=== PATIENT | female | born 1960 | race Caucasian/White ===

== ENCOUNTER 2022-04-10 04:35 | Inpatient (IN) ==
[2022-04-10] MEDS ORDERED: Amiodarone 360 MG IVPREMIX 360 MG/200 ML BAG IV ONE ×2 (05:35→08:31)
[2022-04-10 05:38] LABS: ABS Eosinophils 0.1 10^3/ul (0-0.6); ABS Lymphocytes 1.9 10^3/ul (1.0-4.8); ABS Monocytes 0.7 10^3/ul (0-0.8); ABS Neutrophils 6.5 10^3/ul (1.5-7.7); Eosinophil % 1.4 %; Hematocrit 43 % (35-47); Hemoglobin 14.1 g/dL (12.0-16.0); Lymphocyte % 20.9 %; Mean Corpuscular HGB Conc 33 g/dL (31-36); Mean Corpuscular Hemoglobin 28 pg (27-31); Mean Corpuscular Volume 85 fL (80-97); Mean Platelet Volume 8.6 fL (7.4-10.4); Platelet Count 326 10^3/uL (150-450); Red Blood Count 5.09 10^6 /uL (3.70-4.87); Red Cell Distribution Width 17 % (10-15); White Blood Count 9.3 10^3/uL (3.5-10.8)
[2022-04-10 05:49] LABS: Activated Partial Thrombo Time 35.2 seconds (26.0-38.0); INR 1.18 (0.89-1.11)
[2022-04-10 06:01] LABS: High Sens Troponin Baseline 1415 pg/mL (<15)
[2022-04-10] MEDS ORDERED: Albuterol HFA INHALER 8 gm MDI INH PRN (06:37)
[2022-04-10 07:06] LABS: High Sensitivity Troponin 1 Hr 1456 pg/mL (<15)
[2022-04-10 07:55] LABS: Albumin 4.2 g/dL (3.2-5.2); Albumin/Globulin Ratio 1.5 (1-3); C Reactive Protein 11.06 mg/L (<8.01); Calcium 9.5 mg/dL (8.6-10.3); Globulin 2.8 g/dL (2-4); Magnesium 1.9 mg/dL (1.9-2.7); Potassium 3.8 mmol/L (3.5-5.0); eGFR CKD-EPI 73.3 (>60)
[2022-04-10] MEDS ORDERED: .Amiodarone 24HR ONLY IV Protocol Order Note IV ONE (08:24)
[2022-04-10] MEDS ORDERED: Sulfur Hexaflouride MICROSPHR 25 MG VIAL ONE (08:38)
[2022-04-10 09:20] LABS: Sodium 126 mmol/L (135-145)
[2022-04-10 09:21] LABS: Albumin 5.1 g/dL (3.2-5.2); Albumin/Globulin Ratio 1.5 (1-3); Alkaline Phosphatase 44 U/L (35-149); Blood Urea Nitrogen 13 mg/dL (6-24); C Reactive Protein 10.03 mg/L (<8.01); CO2 Carbon Dioxide 29 mmol/L (22-32); Calcium 8.8 mg/dL (8.6-10.3); Chloride 97 mmol/L (101-111); Globulin 3.3 g/dL (2-4); Glucose 103 mg/dL (70-100); Total Protein 8.4 g/dL (6.4-8.9); eGFR CKD-EPI 62.2 (>60)
[2022-04-10] MEDS ORDERED: Lorazepam PYXIS KEY PRN (09:49)
[2022-04-10] MEDS ORDERED: LORazepam 2 mg VIAL 1 ml IV PUSH ONE (09:49)
[2022-04-10] MEDS ORDERED: Lorazepam PYXIS KEY ONE (09:55)
[2022-04-10] MEDS ORDERED: LORazepam 2 mg VIAL 1 ml ONE (09:56)
[2022-04-10] MEDS ORDERED: Bumetanide IV 0.25 MG/ML 4 ml VIAL (1 mg) SLOW PUSH ONE (10:00)
[2022-04-10 10:54] LABS: TSH Ultra Thyroid Stim Horm 3.66 mcIU/mL (0.34-5.60)
[2022-04-10 10:56] LABS: Free T3 3.9 pg/mL (2.5-3.9); Free T4 1.18 ng/dL (0.61-1.12)
[2022-04-10] MEDS ORDERED: methylPREDNISolone SOD SUCC 125 mg 2 ML VIAL IV ONE (11:29)
[2022-04-10] MEDS ORDERED: methylPREDNISolone SOD SUCC 125 mg 2 ML VIAL ONE (11:32)
[2022-04-10] MEDS ORDERED: fentaNYL 100 mcg/2 ml 50 MCG/ML VIAL ONE (11:45)
[2022-04-10] MEDS ORDERED: Midazolam 5 mg/5 ml VIAL 1 mg/ml 5 ml VIAL (5 mg) ONE (11:45)
[2022-04-10] MEDS ORDERED: Iohexol 350 (CONTRAST) 100 ML PAK IV ONE (11:46)
[2022-04-10] MEDS ORDERED: Lidocaine 1% MPF 5 ML VIAL ONE (11:46)
[2022-04-10] MEDS ORDERED: Heparin 2 UNITS/ML 1000 mls 2,000 ML IV ONE (11:46)
[2022-04-10] MEDS ORDERED: Heparin 1,000 UNIT/ML 10 ml (10,000 UNITS) CATHLAB/DIALYSIS ONE (11:46)
[2022-04-10] MEDS ORDERED: niCARdipine 0.1MG/ML IVPREMIX 20 MG/200 ML BAG IV ONE (11:46)
[2022-04-10] MEDS ORDERED: nitroGLYCERIN DRIP 25,000 MCG/250 ML BTL ONE (11:46)
[2022-04-10 12:00] LABS: High Sensitivity Troponin 3 Hr 1337 pg/mL (<15)
[2022-04-10 12:13] LABS: Calcium 9.2 mg/dL (8.6-10.3); eGFR CKD-EPI 75.3 (>60)
[2022-04-10 12:48] LABS: POC SO2 62 %
[2022-04-10 12:48] LABS: POC SO2 91 %
[2022-04-10] MEDS ORDERED: Bumetanide IV 0.25 MG/ML 4 ml VIAL (1 mg) SLOW PUSH SCH ×3 (13:00→21:00)
[2022-04-10] MEDS: Potassium Chlor 20 meq TAB.ER PO ONE ×2 (13:56→14:36)
[2022-04-10 14:00] LABS: Ferritin 20.7 ng/mL (11-307)
[2022-04-10] MEDS ORDERED: Amiodarone 360 MG IVPREMIX 360 MG/200 ML BAG IV SCH (14:35)
[2022-04-10] MEDS ORDERED: Potassium Chloride LIQUID 20 MEQ/15 ML LIQUID PO ONE (15:00)
[2022-04-10] MEDS ORDERED: Amiodarone 400 mg TAB PO SCH (21:00)
[2022-04-10] MEDS: Bumetanide IV 0.25 MG/ML 4 ml VIAL (1 mg) SLOW PUSH SCH ×2 (23:45)
[2022-04-11] MEDS: Bumetanide IV 0.25 MG/ML 4 ml VIAL (1 mg) SLOW PUSH SCH ×3 (00:28→20:56)
[2022-04-11 06:56] LABS: Calcium 9.5 mg/dL (8.6-10.3); Potassium 4.3 mmol/L (3.5-5.0); eGFR CKD-EPI 62.9 (>60)
[2022-04-11] MEDS: Iron Sucrose 200 MG in NS 0.9% 100 ml BAG 100 ML IVPB SCH (08:21)
[2022-04-11] MEDS: ceFAZolin 2 GM in NS PREMIX 2 GM/100 ML BAG IVPB SCH ×2 (12:30→20:57)
[2022-04-12] MEDS: ceFAZolin 2 GM in NS PREMIX 2 GM/100 ML BAG IVPB SCH ×3 (04:22→20:25)
[2022-04-12 06:40] LABS: ABS Basophils 0.1 10^3/ul (0-0.2); ABS Eosinophils 0.1 10^3/ul (0-0.6); ABS Lymphocytes 2.4 10^3/ul (1.0-4.8); ABS Monocytes 0.8 10^3/ul (0-0.8); ABS Neutrophils 6.2 10^3/ul (1.5-7.7); Eosinophil % 0.9 %; Hematocrit 44 % (35-47); Hemoglobin 13.9 g/dL (12.0-16.0); Lymphocyte % 25.4 %; Mean Corpuscular HGB Conc 32 g/dL (31-36); Mean Corpuscular Hemoglobin 27 pg (27-31); Mean Corpuscular Volume 86 fL (80-97); Mean Platelet Volume 8.8 fL (7.4-10.4); Nucleated Red Blood Cells % 0.1; Platelet Count 277 10^3/uL (150-450); Red Blood Count 5.08 10^6 /uL (3.70-4.87); Red Cell Distribution Width 17 % (10-15); White Blood Count 9.6 10^3/uL (3.5-10.8)
[2022-04-12 06:57] LABS: Calcium 9.4 mg/dL (8.6-10.3); Potassium 4.3 mmol/L (3.5-5.0); eGFR CKD-EPI 51.2 (>60)
[2022-04-12] MEDS: Bumetanide IV 0.25 MG/ML 4 ml VIAL (1 mg) SLOW PUSH SCH (08:24)
[2022-04-12] MEDS: Iron Sucrose 200 MG in NS 0.9% 100 ml BAG 100 ML IVPB SCH (10:49)
[2022-04-12] MEDS: Nicotine PATCH 14 MG/24 HR PATCH TRANSDERM SCH (10:49)
[2022-04-12] MEDS: Enoxaparin 40 MG/0.4 ML SYR SUBCUT SCH (12:46)
[2022-04-13] MEDS: ceFAZolin 2 GM in NS PREMIX 2 GM/100 ML BAG IVPB SCH ×3 (03:30→21:15)
[2022-04-13 08:29] LABS: Calcium 9.6 mg/dL (8.6-10.3); Potassium 4.3 mmol/L (3.5-5.0); eGFR CKD-EPI 58.1 (>60)
[2022-04-13] MEDS ORDERED: Potassium Chlor 20 meq TAB.ER PO ONE (09:21)
[2022-04-13] MEDS: Iron Sucrose 200 MG in NS 0.9% 100 ml BAG 100 ML IVPB SCH (09:51)
[2022-04-13] MEDS ORDERED: ceFAZolin SYR FLUSH 1 GM/10 ML for pocket flush (cardiology) FLUSH ONE (11:45)
[2022-04-13] MEDS ORDERED: NS 0.9% 1000 ml BAG 1,000 ML IV SCH (11:45)
[2022-04-13] MEDS: Nicotine PATCH 14 MG/24 HR PATCH TRANSDERM SCH (12:14)
[2022-04-13] MEDS: Enoxaparin 40 MG/0.4 ML SYR SUBCUT SCH (12:19)
[2022-04-13] MEDS ORDERED: Midazolam 5 mg/5 ml VIAL 1 mg/ml 5 ml VIAL (5 mg) ONE (14:55)
[2022-04-13] MEDS ORDERED: Lidocaine 1% MPF 5 ML VIAL ONE ×2 (14:55)
[2022-04-13] MEDS ORDERED: fentaNYL 100 mcg/2 ml 50 MCG/ML VIAL ONE (14:55)
[2022-04-13] MEDS: Amiodarone 400 mg TAB PO SCH (23:27)
[2022-04-14] MEDS ORDERED: Acetaminophen IV 1 GM/100ML 1,000 MG/100 ML BAG IV PRN (02:23)
[2022-04-14] MEDS: ceFAZolin 2 GM in NS PREMIX 2 GM/100 ML BAG IVPB SCH ×3 (03:51→19:50)
[2022-04-14 05:52] LABS: Calcium 9.2 mg/dL (8.6-10.3); Potassium 4.2 mmol/L (3.5-5.0); eGFR CKD-EPI 79.7 (>60)
[2022-04-14] MEDS: Iron Sucrose 200 MG in NS 0.9% 100 ml BAG 100 ML IVPB SCH (08:56)
[2022-04-14] MEDS: Nicotine PATCH 14 MG/24 HR PATCH TRANSDERM SCH (08:57)
[2022-04-14] MEDS: Amiodarone 400 mg TAB PO SCH ×2 (10:41→21:22)
[2022-04-14] MEDS ORDERED: Bumetanide IV 0.25 MG/ML 4 ml VIAL (1 mg) SLOW PUSH ONE (11:00)
[2022-04-14] MEDS: Enoxaparin 40 MG/0.4 ML SYR SUBCUT SCH (12:21)
[2022-04-14] MEDS: Lidocaine PATCH 5% PATCH TRANSDERM SCH (14:09)
[2022-04-14 17:19] LABS: Albumin 3.3 g/dL (3.4-4.7); Albumin/Globulin Ratio 0.98; Gamma Globulin 1.1 g/dL (0.6-1.6); Total Protein(PEP) 6.7 g/dL (6.3 - 7.9)
[2022-04-15] MEDS: ceFAZolin 2 GM in NS PREMIX 2 GM/100 ML BAG IVPB SCH ×2 (02:30→13:05)
[2022-04-15 06:52] LABS: ABS Eosinophils 0.1 10^3/ul (0-0.6); ABS Lymphocytes 1.4 10^3/ul (1.0-4.8); ABS Monocytes 0.8 10^3/ul (0-0.8); ABS Neutrophils 5.9 10^3/ul (1.5-7.7); Eosinophil % 1.3 %; Hematocrit 44 % (35-47); Hemoglobin 13.7 g/dL (12.0-16.0); Lymphocyte % 16.7 %; Mean Corpuscular HGB Conc 32 g/dL (31-36); Mean Corpuscular Hemoglobin 28 pg (27-31); Mean Corpuscular Volume 87 fL (80-97); Mean Platelet Volume 8.4 fL (7.4-10.4); Nucleated Red Blood Cells % 0.1; Platelet Count 260 10^3/uL (150-450); Red Blood Count 5.01 10^6 /uL (3.70-4.87); Red Cell Distribution Width 16 % (10-15); White Blood Count 8.2 10^3/uL (3.5-10.8)
[2022-04-15 07:34] LABS: Calcium 8.9 mg/dL (8.6-10.3); Potassium 4.2 mmol/L (3.5-5.0); eGFR CKD-EPI 72.3 (>60)
[2022-04-15] MEDS: Amiodarone 400 mg TAB PO SCH (09:47)
[2022-04-15] MEDS: Nicotine PATCH 14 MG/24 HR PATCH TRANSDERM SCH (09:50)
[2022-04-15] MEDS: Lidocaine PATCH 5% PATCH TRANSDERM SCH (09:50)
[2022-04-15] MEDS: Iron Sucrose 200 MG in NS 0.9% 100 ml BAG 100 ML IVPB SCH (10:30)
[2022-04-15] MEDS: Enoxaparin 40 MG/0.4 ML SYR SUBCUT SCH (13:05)
[2022-04-15 15:15] VITALS: BP 111/74
== END 2022-04-15 15:50 | disposition home or self-care (01) | DRG 222 ==
LOC: ED 04:35 → EDHOLD 06:01 → SUATTDRO 06:01 → EDHOLD 08:11 → ICU 10:27 → MEDTELE 04-11 23:12
PROVIDERS: ADMIT Hospitalist; ATTEND Internal Medicine